=== PATIENT | male | born 2000 | race Two or more races ===

== ENCOUNTER 2021-08-04 19:58 | Emergency (ER) | payer OTHER ==
[~2021-08-04] VITALS: Ht 177.8 cm; Wt 98.0 kg
[2021-08-05] MEDS ORDERED: ZITHROMAX1 GM PO (00:17)
== END 2021-08-05 01:16 | disposition home or self-care (01) ==
LOC: ER 19:58
DX: A90 Dengue fever [classical dengue] (principal); B96.0 Mycoplasma pneumoniae [M. pneumoniae] as the cause of diseases classified elsewhere; J06.9 Acute upper respiratory infection, unspecified; Z20.822 Contact with and (suspected) exposure to COVID-19